=== PATIENT | male | born 1995 | race Hispanic/Latino ===

== ENCOUNTER 2020-09-06 15:26 | Emergency (ER) | payer SELFPAY ==
[2020-09-06 15:36] VITALS: BP 115/65; PULSE 86; RESP 18; TEMP 36.9; O2SAT 99
[2020-09-06 16:13] LABS: COVID19 -Nasal RAPID Negative (Negative)
--- NOTE | 2020-09-06 19:03 | PC.NURSE ---
Pt reports months of abdominal pain, nausea with eating, constipation, back pain that radiates down RLE, constipation, dizziness, YOUNG, vertigo. Pt has been seen at [facility] and [facility] for same with no definitive diagnosis despite multiple ultrasounds, XRays, CT scans. Pt reports symptoms have been worsening over past 2 months. Pt resting quietly in bed during assessment, no grimacing, able to speak in full sentences, pt has sponsor at bedside that continues to speak for the patient.
[2020-09-06 19:11] VITALS: BP 120/68; PULSE 72; RESP 16; O2SAT 98
--- NOTE | 2020-09-06 21:34 | DI.CT.S_ITS ---
PROCEDURE: CT HEAD/BRAIN WO CON INDICATIONS: pain TECHNIQUE: Noncontrast 4.5 mm thick angled axial sections acquired from the foramen magnum to the vertex, with coronal and sagittal reformats. For radiation dose reduction, the following was used: automated exposure control, adjustment of mA and/or kV according to patient size. COMPARISON: None. FINDINGS: Image quality: Excellent. CSF spaces: Basal cisterns are patent. No extra-axial fluid collections. Ventricles are normal in size and shape. Brain: No midline shift. No intracranial masses or hemorrhage. Gates-white matter interface is normal. Fluid density lesion along the distal left transverse sinus likely representing an arachnoid granulation. This is of unlikely clinical significance. Skull and face: Calvarium and visualized facial bones are intact, without suspicious lesions. There is mild prominence of the soft tissues adjacent to the right skull vertex with subtle subcutaneous inflammation. Sinuses: Visualized sinuses and mastoids are clear. IMPRESSION: No acute intracranial abnormality. Subtle soft tissue prominence and inflammation of the scalp overlying the right vertex. This is nonspecific. Recommend correlation with physical exam and history of trauma. No underlying calvarial abnormality. Dictated by: Sergey Beyer D.O. on 09/07/2020 at 7:25 Approved by: Sergey Beyer D.O. on 09/07/2020 at 7:30
--- NOTE | 2020-09-06 21:34 | DI.CT.S_ITS ---
PROCEDURE: CT ABDOMEN PELVIS W CON INDICATIONS: rlq TECHNIQUE: After the administration of intravenous contrast, 5 mm thick sections acquired from the diaphragm to the symphysis. 5 mm coronal and sagittal reformats were acquired. For radiation dose reduction, the following was used: automated exposure control, adjustment of mA and/or kV according to patient size. COMPARISON: None. FINDINGS: Image quality: Excellent. ABDOMEN: Lung bases: Lung bases are clear. Heart size is normal. Solid organs: Liver is normal in size and enhancement. Gallbladder is unremarkable. Biliary system is non dilated. Pancreas enhances normally. Spleen is normal in size and enhancement. No adrenal nodules. Kidneys demonstrate normal size and enhancement, without hydronephrosis. Peritoneum and bowel: Bowel loops demonstrate normal wall thickness and caliber. No free fluid or air. The appendix is normal in size with internal gas. No abnormal enhancement or surrounding inflammation. Nodes and vessels: No retroperitoneal or mesenteric adenopathy by size criteria. Aorta and inferior vena cava are normal in size. Miscellaneous: No ventral hernias. PELVIS: Genitourinary: Limited evaluation of the bladder given nondistention. The prostate and seminal vesicles are within normal limits. Miscellaneous: No inguinal hernias or adenopathy. Bones: No suspicious bony lesions. No vertebral body compression fractures. IMPRESSION: No evidence of an acute intra-abdominal/pelvic abnormality. Specifically the appendix is normal. Agree with preliminary report. Dictated by: Sergey Beyer D.O. on 09/07/2020 at 7:31 Approved by: Sergey Beyer D.O. on 09/07/2020 at 7:34
[2020-09-06] MEDS: ONDANSETRON 4 MG/2 ML INJ IV (21:59)
[2020-09-06] MEDS: KETOROLAC 30 MG/ML VIAL IV (21:59)
[2020-09-06 22:05] LABS: Add Manual Diff / Slide Review NO; Basophils Absolute Auto 0 /uL (0-100); Basophils Percent Auto 0.6 % (0-2); Eosinophils Absolute Auto 100 /uL (0-450); Eosinophils Percent Auto 1.3 % (2-4); Hematocrit 46.1 % (41-53); Hemoglobin 16.4 g/dL (13.5-17.5); Lymphocytes Absolute Auto 2700 /uL (1100-4500); Lymphocytes Percent Auto 41.7 % (25-40); Mean Corpuscular HGB Conc 35.7 % (30-36); Mean Corpuscular Hemoglobin 31.1 PG (26-34); Mean Corpuscular Volume 87.2 fL (80-100); Monocytes Absolute Auto 500 /uL (0-900); Monocytes Percent Auto 7.8 % (3-14); Neutrophils Absolute Auto 3100 /uL (1500-7000); Neutrophils Percent Auto 48.6 % (50-75); Platelet Count 250 X10^3/uL (150-400); Red Blood Cell Count 5.28 X10^6/uL (4.5-5.9); Red Cell Distribution Width 12.6 % (11.6-14.8); White Blood Cell Count 6.4 X10^3/uL (4.5-11.0)
[2020-09-06 22:06] VITALS: PULSE 60; O2SAT 99
[2020-09-06 22:10] LABS: Alanine Aminotransferase 19 IU/L (<50); Albumin 4.8 g/dL (3.5-5.0); Albumin Globulin Ratio 1.5 (1.0-2.8); Alkaline Phosphatase 69 U/L (38-126); Aspartate Aminotransferase 27 IU/L (17-59); BUN Creatinine Ratio 13.3 (6-22); Bilirubin Total 0.8 mg/dL (0.2-1.3); Blood Urea Nitrogen 12 mg/dL (9-20); Calcium 9.9 mg/dL (8.4-10.2); Carbon Dioxide 27 mmol/L (22-32); Chloride 101 mmol/L (98-107); Estimated Glomerular Filt Rate > 60.0 mL/min (>60); Globulin 3.2 g/dL (1.7-4.1); Glucose 90 mg/dL (70-100); HEMOLYSIS 17 (0-50); Lipase 39 U/L (23-300); Potassium 4.1 mmol/L (3.4-5.1); Sodium 139 mmol/L (137-145)
--- NOTE | 2020-09-06 22:27 | ED.HA ---
HPI - Headache General Chief Complaint: Headache Stated Complaint: head pain, muscular pains all over Time Seen by Provider: 09/06/20 21:20 Source: patient and full time staff interpreter Mode of arrival: Family Vehicle Limitations: language barrier History of Present Illness HPI Narrative: Patient is a 25-year-old male from [place] of who his skate from [place] here. He has found refuge with a local. He apparently has been complaining of headache and abdominal pain off and on he has had workup in the past. What is concerning today today is that he has pain radiating from his back to his head. He denies any fever. He also is complaining quite a bit abdominal pain. He says that he is passing gas but no real bowel movement he seems to be tender. He denies any nausea or vomiting. Pain is intermittent your pain in his arms and legs. At 1 point he was diagnosed with sciatica however pain seems to be going superior rather than inferior. He has taken Tylenol and IV profane prior to arrival without any relief. Related Data Allergies Allergy/AdvReac Type Severity Reaction Status Date / Time No Known Drug Allergies Allergy Verified 09/06/20 22:51 Review of Systems Review of Systems Narrative: GENERAL: Denies chills, fatigue, malaise, fever, sweats, travel HEENT: Denies sinus pain, ear pain, sore throat, difficulty swallowing, neck pain RESPIRATORY: Denies dyspnea, cough, wheezing, hemoptysis, sputum. CARDIOVASCULAR: Denies chest pain, palpitations, orthopnea, edema GASTROINTESTINAL: See HPI : Denies dysuria, frequency, incontinence, hematuria, urinary retention, flank pain. MUSCULOSKELETAL: Denies weakness, joint pain, or bony pain SKIN: No rash, no erythema, no pruritus NEUROLOGIC: Denies weakness, dizziness, headache, numbness, change in speech, confusion PSYCHIATRIC: No concerning psychosocial issues. 12 point review of systems is negative except for those stated above and HPI Patient History Social History Smoking Status: Never smoker Smoking Status: Never smoker alcohol intake frequency: 0-2 drinks per day Substance Use Type: does not use Exam Initial Vital Signs Initial Vital Signs: Vital Signs Temperature 98.5 F 09/06/20 15:36 Pulse Rate 86 09/06/20 15:36 Respiratory Rate 18 09/06/20 15:36 Blood Pressure 115/65 09/06/20 15:36 Pulse Oximetry 99 09/06/20 15:36 GENERAL: Well-appearing, well-nourished and in no acute distress. HEENT: Head atraumatic,EOMI, pupils reactive, face symmetric, moist mucous membranes Negative Kernig and Brudzinski sign CARDIOVASCULAR: Regular rate and rhythm without murmurs, rubs or gallops. RESPIRATORY: Breath sounds equal bilaterally, no wheezes rales or rhonchi. ABDOMEN: Soft, nontender. Normoactive bowel sounds all 4 quadrants. No guarding or rebound. EXTREMITIES: Normal range of motion, no clubbing or edema. Neurovascularly intact NEUROLOGICAL: Alert and oriented x4.Normal gait and speech. SKIN: Warm, dry, no laceration, no petechiae, no rashes or lesions. Course Orders Ordered: ED Orders 09/06/20 21:34 CT abdomen pelvis w con Stat CT head/brain wo con Stat 09/06/20 21:45 Complete Blood Count AUTO DIFF Stat Comprehensive Metabolic Panel Stat Lipase Stat Discontinued Medications Ketorolac Tromethamine (Ketorolac 30 Mg/Ml Vial) 30 mg IV NOW ONE Stop: 09/06/20 21:35 Last Admin: 09/06/20 21:59 Dose: 30 mg Documented by: LAURA Lorazepam (Lorazepam 2 Mg/Ml Inj) 0.5 mg IV NOW ONE Stop: 09/06/20 22:50 Last Admin: 09/06/20 22:54 Dose: 0.5 mg Documented by: LAURA Ondansetron HCl (Ondansetron 4 Mg/2 Ml Inj) 4 mg IV NOW ONE Stop: 09/06/20 21:35 Last Admin: 09/06/20 21:59 Dose: 4 mg Documented by: LAURA Vital Signs Vital signs: Vital Signs - 8 hr 09/06/20 22:06 09/06/20 22:30 09/06/20 23:16 Pulse Rate 60 60 65 Respiratory Rate 15 18 Blood Pressure 124/59 L 135/78 Pulse Oximetry 99 98 100 MDM - Headache Lab Data Attestation: I reviewed the patient's lab results. Result diagrams: 09/06/20 21:45 09/06/20 21:45 Labs: Lab Results 09/06/20 09/06/20 09/06/20 Range/Units 15:45 21:45 21:45 WBC 6.4 (4.5-11.0) X10^3/uL RBC 5.28 (4.5-5.9) X10^6/uL Hgb 16.4 (13.5-17.5) g/dL Hct 46.1 (41-53) % MCV 87.2 (80-100) fL MCH 31.1 (26-34) PG MCHC 35.7 (30-36) % RDW 12.6 (11.6-14.8) % Plt Count 250 (150-400) X10^3/uL Neut % (Auto) 48.6 L (50-75) % Lymph % (Auto) 41.7 H (25-40) % [place] % (Auto) 7.8 (3-14) % Eos % (Auto) 1.3 L (2-4) % Baso % (Auto) 0.6 (0-2) % Neut # (Auto) 3100 (2268-8604) /uL Lymph # (Auto) 2700 (8886-7549) /uL [place] # (Auto) 500 (0-900) /uL Eos # (Auto) 100 (0-450) /uL Baso # (Auto) 0 (0-100) /uL Sodium 139 (137-145) mmol/L Potassium 4.1 (3.4-5.1) mmol/L Chloride 101 (98-107) mmol/L Carbon Dioxide 27 (22-32) mmol/L BUN 12 (9-20) mg/dL Creatinine 0.90 (0.66-1.25) mg/dL Estimated GFR > 60.0 (>60) mL/min BUN/Creatinine Ratio 13.3 (6-22) Glucose 90 (70-100) mg/dL Calcium 9.9 (8.4-10.2) mg/dL Total Bilirubin 0.8 (0.2-1.3) mg/dL AST 27 (17-59) IU/L ALT 19 (<50) IU/L Alkaline Phosphatase 69 (38-126) U/L Total Protein 8.0 (6.3-8.2) g/dL Albumin 4.8 (3.5-5.0) g/dL Globulin 3.2 (1.7-4.1) g/dL Albumin/Globulin Ratio 1.5 (1.0-2.8) Lipase 39 (23-300) U/L SARS-CoV-2 (PCR) Negative (Negative) Urine Dip Bedside Urine Glucose Negative Bedside Urine Bilirubin - Negative Bedside Urine Ketone +/- 5 Urine Specific [place] 1.030 Bedside Urine Occult Blood - Negative Bedside Urine pH 6.0 Bedside Urine Urobilinogen - Negative Bedside Urine Nitrite - Negative Bedside Urine Leukocytes - Negative Esterase Imaging Data CT scan - head: Radiologist's Impression: Preliminary report Normal CT head CT scan - abdomen/pelvis: Radiologist's Impression: Preliminary report: Normal appendix MDM Narrative Medical decision making narrative: Patient's symptoms are relatively vague and seem to be is ongoing. He has had workup in the past and has an appointment with his care provider in 2 days. His host was concern for worsening head ache however patient seems to be more concerned with his ongoing abdominal issues. No obvious injury from his trauma which I am unclear when his trauma happened and how long he has actually been in the [place]. I actually believe a lot of his symptoms are probably related to PTSD. He apparently was [facility] the [facility] as well. However at this time I have no acute findings or explanation for his symptoms. He does not appear to have meningitis in overall there is no infection. Discharge Plan Departure Patient Disposition: Home Clinical Impression: Headache, Chronic pain Instructions: DI for Headache Activity Restrictions/Additional Instructions: *You have been diagnosed with headache in chronic pain *What to do: At this time I suspect symptoms may be related to trauma, no injury is found. Increasing fluid intake can help with stools. He does need a primary care provider *Continue to take medications as directed *Follow up with your primary care provider in 2-3 days *Return to ER if you should have a fever, weakness, persistent vomiting or any new, worsening or concerning symptoms Referrals: Frieda Burrell MD [Non-Staff] -
[2020-09-06 22:30] VITALS: BP 124/59; PULSE 60; RESP 15; O2SAT 98
[2020-09-06] MEDS: LORazepam 2 MG/ML INJ 0.5 MG IV (22:54)
[2020-09-06 23:16] VITALS: BP 135/78; PULSE 65; RESP 18; O2SAT 100
== END 2020-09-06 23:17 | disposition home or self-care (01) ==
PROVIDERS: Emergency Medicine; Emergency Provider Emergency Medicine
DX: R51.9 Headache, unspecified (principal); G89.29 Other chronic pain; R10.9 Unspecified abdominal pain; Z20.822 Contact with and (suspected) exposure to COVID-19
CPT/HCPCS: 36415; 70450; 74177; 80053; 81003; 83690; 85025; 87635; 96374; 96375; 99284; C9803; J1885; J2060; J2405; Q9967

== ENCOUNTER 2020-09-08 13:46 | Emergency (ER) | payer SELFPAY ==
[2020-09-08] VITALS (17 sets, daily range): BP systolic 112–147; BP diastolic 64–89; PULSE 62–95; RESP 11–27; TEMP 36.4; O2SAT 99–100
--- NOTE | 2020-09-08 13:54 | DI.RAD.S_ITS ---
PROCEDURE: XR CHEST 1V INDICATIONS: chest pain TECHNIQUE: One view of the chest was acquired. COMPARISON: None. FINDINGS: Surgical changes and devices: None. Lungs and pleura: Lungs are clear. No pleural effusions or pneumothorax. Mediastinum: Mediastinal contours appear normal. Heart size is normal. Bones and chest wall: No suspicious bony lesions. Overlying soft tissues appear unremarkable. IMPRESSION: No acute cardiopulmonary process. Dictated by: John Linda M.D. on 09/08/2020 at 15:00 Approved by: John Linda M.D. on 09/08/2020 at 15:02
[2020-09-08] MEDS: SODIUM CHLORIDE 0.9% 1,000 ML 1000 ML IV (14:01)
[2020-09-08] MEDS: NALOXONE 1 MG/ML SYRINGE IV (14:01)
--- NOTE | 2020-09-08 14:05 | ED.GENADULT ---
HPI - General Adult General Chief complaint: Unresponsive Stated complaint: lost consciousness in parking lot, non-responsive Time Seen by Provider: 09/08/20 13:54 Source: patient Mode of arrival: other (Stretcher) Limitations: language barrier and altered mental status History of Present Illness HPI narrative: Patient is a 25-year-old male who arrived to the emergency department by private vehicle. He had to be extracted from the vehicle by nursing staff in the parking lot. He did have a response to deep sternal rub but otherwise was unable to provide any HPI. Was also reports the patient speaks very little [place] of this was also an issue. Related Data Previous Rx's Medication Instructions Recorded cyclobenzaprine 10 mg PO TID PRN #20 tab 09/08/20 docusate sodium [Colace] 100 mg PO BID PRN #30 cap 09/08/20 Allergies Allergy/AdvReac Type Severity Reaction Status Date / Time No Known Drug Allergies Allergy Verified 09/06/20 22:51 Review of Systems Review of Systems ROS Unobtainable: Unobtainable due to medical condition Patient History Medical History Back pain Chronic pain Social History Smoking Status: Never smoker Smoking Status: Never smoker alcohol intake frequency: 0-2 drinks per day Substance Use Type: does not use Exam Initial Vital Signs Initial Vital Signs: Vital Signs Pulse Rate 73 09/08/20 13:55 Respiratory Rate 21 09/08/20 13:55 Const Limitations: altered mental status HENMT Head: normal to inspection and normocephalic Face and sinus: normal facial exam Eyes General: appearance normal, both eyes and all related structures Pupils: PERRL Neck Lymphatic: No lymphadenopathy Chest Chest: No crepitus Resp Effort & Inspection: normal respiratory effort Auscultation: clear to auscultation bilaterally Cardio Rate: regular rate Rhythm: regular rhythm GI Inspection: non-distended External: normal external exam Skin Lesions: no lesions Rashes: no rashes Neuro General: moves all extremities Extrem General: normal to inspection Psych Appearance: well kempt Course Orders Ordered: Discontinued Medications Ammonia (Aromatic Spirit) (Ammonia Inhalant 1 Each) 1 each INH NOW ONE Stop: 09/08/20 13:55 Last Admin: 09/08/20 15:47 Dose: Not Given Documented by: LEEANNA Sodium Chloride (Normal Saline 0.9%) 1,000 mls @ 1,000 mls/hr IV BOLUS ONE Stop: 09/08/20 14:54 Last Infusion: 09/08/20 15:02 Dose: 0 mls/hr Documented by: Admin: 09/08/20 14:01 Dose: 1,000 mls/hr Documented by: LEEANNA Naloxone HCl (Naloxone 1 Mg/Ml Syringe) 1 mg IV NOW ONE Stop: 09/08/20 13:56 Last Admin: 09/08/20 14:01 Dose: 1 mg Documented by: LEEANNA Medical Decision Making Medical Records Medical records reviewed: Yes I reviewed the patient's medical records. Lab Data Lab results reviewed: Yes I reviewed the patient's lab results. Result diagrams: 09/08/20 14:00 09/08/20 14:00 Labs: Lab Results 09/08/20 09/08/20 09/08/20 Range/Units 14:00 14:00 14:00 WBC 6.0 (4.5-11.0) X10^3/uL RBC 5.61 (4.5-5.9) X10^6/uL Hgb 17.4 (13.5-17.5) g/dL Hct 49.3 (41-53) % MCV 87.8 (80-100) fL MCH 31.0 (26-34) PG MCHC 35.3 (30-36) % RDW 12.0 (11.6-14.8) % Plt Count 253 (150-400) X10^3/uL Neut % (Auto) 49.1 L (50-75) % Lymph % (Auto) 39.9 (25-40) % [place] % (Auto) 8.4 (3-14) % Eos % (Auto) 1.8 L (2-4) % Baso % (Auto) 0.8 (0-2) % Neut # (Auto) 3000 (0075-7490) /uL Lymph # (Auto) 2400 (8116-4379) /uL [place] # (Auto) 500 (0-900) /uL Eos # (Auto) 100 (0-450) /uL Baso # (Auto) 100 (0-100) /uL PT 13.0 H (10.1-12.7) SECONDS INR 1.2 (0.9-1.3) APTT 39 H (26.4-36.2) SECONDS Sodium 138 (137-145) mmol/L Potassium 3.8 (3.4-5.1) mmol/L Chloride 100 (98-107) mmol/L Carbon Dioxide 27 (22-32) mmol/L BUN 12 (9-20) mg/dL Creatinine 1.17 (0.66-1.25) mg/dL Estimated GFR > 60.0 (>60) mL/min BUN/Creatinine Ratio 10.3 (6-22) Glucose 94 (70-100) mg/dL Calcium 10.3 H (8.4-10.2) mg/dL Total Bilirubin 0.8 (0.2-1.3) mg/dL AST 28 (17-59) IU/L ALT 23 (<50) IU/L Alkaline Phosphatase 82 (38-126) U/L Total Creatine Kinase 76 (55-170) U/L CK-MB (CK-2) TNP CK-MB (CK-2) Rel Index TNP Troponin I < 0.012 (0.01-0.034) ng/mL Total Protein 8.3 H (6.3-8.2) g/dL Albumin 5.0 (3.5-5.0) g/dL Globulin 3.3 (1.7-4.1) g/dL Albumin/Globulin Ratio 1.5 (1.0-2.8) Lipase 66 D (23-300) U/L Urine Color Urine Appearance Urine pH (4.5-8.0) Ur Specific [place] (1.000-1.035) Urine Protein (Negative) Urine Glucose (UA) (Negative) g/dL Urine Ketones (NEGATIVE) Urine Occult Blood (Negative) Urine Nitrate (Negative) Urine Bilirubin (NEGATIVE) Urine Urobilinogen (0.2) E.U./dL Ur Leukocyte Esterase (NEGATIVE) Urine RBC (0-5/HPF) Urine WBC (0-5/HPF) Urine Bacteria (None) Ur Culture Indicated? U Opiates 300ng/mL cut (Negative) Ur Oxycodone Screen (Negative) Urine Methadone Screen (Negative) Ur Barbiturates Screen (Negative) U Tricyclic Antidepress (Negative) Ur Phencyclidine Scrn (Negative) Ur Amphetamines Screen (Negative) U Methamphetamines Scrn (Negative) Ur MDMA Scrn (Ecstasy) (Negative) U Benzodiazepines Scrn (Negative) Urine Cocaine Screen (Negative) U Marijuana (THC) Screen (Negative) Ethyl Alcohol < 10 ( - 10) mg/dL SARS-CoV-2 (PCR) (Negative) 09/08/20 09/08/20 09/08/20 Range/Units 14:55 14:55 14:58 WBC (4.5-11.0) X10^3/uL RBC (4.5-5.9) X10^6/uL Hgb (13.5-17.5) g/dL Hct (41-53) % MCV (80-100) fL MCH (26-34) PG MCHC (30-36) % RDW (11.6-14.8) % Plt Count (150-400) X10^3/uL Neut % (Auto) (50-75) % Lymph % (Auto) (25-40) % [place] % (Auto) (3-14) % Eos % (Auto) (2-4) % Baso % (Auto) (0-2) % Neut # (Auto) (0873-8004) /uL Lymph # (Auto) (7736-0782) /uL [place] # (Auto) (0-900) /uL Eos # (Auto) (0-450) /uL Baso # (Auto) (0-100) /uL PT (10.1-12.7) SECONDS INR (0.9-1.3) APTT (26.4-36.2) SECONDS Sodium (137-145) mmol/L Potassium (3.4-5.1) mmol/L Chloride (98-107) mmol/L Carbon Dioxide (22-32) mmol/L BUN (9-20) mg/dL Creatinine (0.66-1.25) mg/dL Estimated GFR (>60) mL/min BUN/Creatinine Ratio (6-22) Glucose (70-100) mg/dL Calcium (8.4-10.2) mg/dL Total Bilirubin (0.2-1.3) mg/dL AST (17-59) IU/L ALT (<50) IU/L Alkaline Phosphatase (38-126) U/L Total Creatine Kinase (55-170) U/L CK-MB (CK-2) CK-MB (CK-2) Rel Index Troponin I (0.01-0.034) ng/mL Total Protein (6.3-8.2) g/dL Albumin (3.5-5.0) g/dL Globulin (1.7-4.1) g/dL Albumin/Globulin Ratio (1.0-2.8) Lipase (23-300) U/L Urine Color Yellow Urine Appearance Clear Urine pH 6.5 (4.5-8.0) Ur Specific [place] 1.010 (1.000-1.035) Urine Protein Negative (Negative) Urine Glucose (UA) Negative (Negative) g/dL Urine Ketones Negative (NEGATIVE) Urine Occult Blood Negative (Negative) Urine Nitrate Negative (Negative) Urine Bilirubin Negative (NEGATIVE) Urine Urobilinogen 0.2 (0.2) E.U./dL Ur Leukocyte Esterase Negative (NEGATIVE) Urine RBC None seen (0-5/HPF) Urine WBC None seen (0-5/HPF) Urine Bacteria None seen (None) Ur Culture Indicated? Cult not indicated U Opiates 300ng/mL cut Negative (Negative) Ur Oxycodone Screen Negative (Negative) Urine Methadone Screen Negative (Negative) Ur Barbiturates Screen Negative (Negative) U Tricyclic Antidepress Negative (Negative) Ur Phencyclidine Scrn Negative (Negative) Ur Amphetamines Screen Negative (Negative) U Methamphetamines Scrn Negative (Negative) Ur MDMA Scrn (Ecstasy) Negative (Negative) U Benzodiazepines Scrn Negative (Negative) Urine Cocaine Screen Negative (Negative) U Marijuana (THC) Screen Negative (Negative) Ethyl Alcohol ( - 10) mg/dL SARS-CoV-2 (PCR) Negative (Negative) Imaging Data Chest x-ray: Radiologist's Impression: [address] [id number] ReportSigned Patient: Angel GomezR#: [id number]: 1995Acct:[id number]/Sex: MDate of Service: 09/08/20Loc: EDAccession Number: [id number] Procedure: XR chest 1V Ordering Provider: Erick Gottlieb D.O. PROCEDURE: XR CHEST 1V INDICATIONS: chest pain TECHNIQUE: One view of the chest was acquired. COMPARISON: None. FINDINGS: Surgical changes and devices: None. Lungs and pleura: Lungs are clear. No pleural effusions or pneumothorax. Mediastinum: Mediastinal contours appear normal. Heart size is normal. Bones and chest wall: No suspicious bony lesions. Overlying soft tissues appear unremarkable. IMPRESSION: No acute cardiopulmonary process. Dictated by: John Linda M.D. on 09/08/2020 at 15:00 Approved by: John Linda M.D. on 09/08/2020 at 15:02 CT scan - head: Radiologist's Impression: [address] [id number] Scan ReportSigned Patient: Angel GomezR#: [id number]: 1995Acct:[id number]/Sex: 25 / MDate of Service: 09/08/20Loc: EDAccession Number: [id number] Procedure: CT head/brain wo con Ordering Provider: Erick Gottlieb D.O. PROCEDURE: CT HEAD/BRAIN WO CON INDICATIONS: Altered mental status TECHNIQUE: Noncontrast 4.5 mm thick angled axial sections acquired from the foramen magnum to the vertex, with coronal and sagittal reformats. For radiation dose reduction, the following was used: automated exposure control, adjustment of mA and/or kV according to patient size. COMPARISON: [facility], CT, CT HEAD/BRAIN WO CON, 09/06/2020, 21:41. FINDINGS: Image quality: Excellent. CSF spaces: Basal cisterns are patent. No extra-axial fluid collections. Ventricles are normal in size and shape. Brain: No midline shift. No intracranial masses or hemorrhage. Gates-white matter interface is normal. Skull and face: Calvarium and visualized facial bones are intact, without suspicious lesions. Sinuses: Visualized sinuses and mastoids are clear. IMPRESSION: No acute intracranial process. Dictated by: Brady Lu M.D. on 09/08/2020 at 14:38 Approved by: Brady Lu M.D. on 09/08/2020 at 14:40 ECG Data Attestation: I personally reviewed and interpreted this ECG as follows: Prior ECG tracings: not available for review Interpretation: Sinus rhythm Ventricular rate is 77 Normal axis Normal QRS Normal QTC No ST T wave changes MDM Narrative Medical decision making narrative: Patient initially was maintaining his airway and moved all 4 extremities but was minimally responsive even to deep stimulus. Was given Narcan without any apparent resolution of symptoms. Head CT was unremarkable. Labs are unremarkable. During his time here in the emergency department he did become more alert and awake. Review of his history when he was here couple days ago seems that there was a PTSD/anxiety component to his symptoms. He eventually did become conversive was able to provide HPI/review of systems. The translation line was used for this. He states that he was coming to the hospital today in order to obtain his records from a couple days ago so that he could take to his new primary provider at the [facility]. He states that he was having back pain and neck pain and also abdominal pain. What he describes appears to be a constipation issue. It seems that this has been going on for quite some time. He states he strains quite a bit with sitting on the toilet. This causes him to have some chest discomfort and neck discomfort and also some blurry vision. We did discuss things he could do at home to help with the apparent constipation issues. He does have a benign abdominal exam today. He is also complaining of back pain. The area that he points to his back does seem to have muscle tension in this area. I do suspect this is musculoskeletal in origin. I have low suspicion for stroke. Low suspicion for TIA. He does not have any other findings consistent with alcohol or other toxic ingestion. I suspect that his symptoms earlier today were anxiety/psychological in origin. We also had a discussion about potential suicidal ideations that he has been having. He states that his abdomen hurts so much at times that he wants to cut it open to see what is going on inside. I tried to provide reassurance to the patient that there were medications and we could try to help with his symptoms. He is not currently suicidal. He does have primary provider support. I feel that we can hold on further workup. Patient was given return precautions through the translation line and he expressed understanding of this. He walked out of the emergency department. Discharge Plan Departure Patient Disposition: Home Clinical Impression: Abdominal pain, Back pain Instructions: Low Back Pain, Constipation Activity Restrictions/Additional Instructions: Recomiende que tome los medicamentos seg?n las indicaciones. Tambi?n le recomiendo que se comunique con quiroga proveedor principal para un seguimiento. Quiroga m?dico de cabecera puede solicitar estudios adicionales si es necesario si los medicamentos no funcionan. Regrese al departamento de emergencias por cualquier s?ntoma nuevo. Prescriptions: New docusate sodium [Colace] 100 mg capsule 100 mg PO BID PRN (Reason: constipation) Qty: 30 RF: 0 cyclobenzaprine 10 mg tablet 10 mg PO TID PRN (Reason: muscle spasm) Qty: 20 RF: 0
[2020-09-08 14:10] LABS: Add Manual Diff / Slide Review NO; Basophils Absolute Auto 100 /uL (0-100); Basophils Percent Auto 0.8 % (0-2); Eosinophils Absolute Auto 100 /uL (0-450); Eosinophils Percent Auto 1.8 % (2-4); Hematocrit 49.3 % (41-53); Hemoglobin 17.4 g/dL (13.5-17.5); Lymphocytes Absolute Auto 2400 /uL (1100-4500); Lymphocytes Percent Auto 39.9 % (25-40); Mean Corpuscular HGB Conc 35.3 % (30-36); Mean Corpuscular Volume 87.8 fL (80-100); Monocytes Absolute Auto 500 /uL (0-900); Monocytes Percent Auto 8.4 % (3-14); Neutrophils Absolute Auto 3000 /uL (1500-7000); Neutrophils Percent Auto 49.1 % (50-75); Platelet Count 253 X10^3/uL (150-400); Red Blood Cell Count 5.61 X10^6/uL (4.5-5.9)
[2020-09-08 14:19] LABS: INR 1.2 (0.9-1.3)
[2020-09-08 14:22] LABS: PTT Partial Thromboplastin Tim 39 SECONDS (26.4-36.2)
[2020-09-08 14:26] LABS: Alanine Aminotransferase 23 IU/L (<50); Albumin Globulin Ratio 1.5 (1.0-2.8); Alkaline Phosphatase 82 U/L (38-126); Aspartate Aminotransferase 28 IU/L (17-59); BUN Creatinine Ratio 10.3 (6-22); Bilirubin Total 0.8 mg/dL (0.2-1.3); Blood Urea Nitrogen 12 mg/dL (9-20); Calcium 10.3 mg/dL (8.4-10.2); Carbon Dioxide 27 mmol/L (22-32); Chloride 100 mmol/L (98-107); Creatine Kinase 76 U/L (55-170); Estimated Glomerular Filt Rate > 60.0 mL/min (>60); Ethanol (ETOH) < 10 mg/dL; Globulin 3.3 g/dL (1.7-4.1); Glucose 94 mg/dL (70-100); HEMOLYSIS 19 (0-50); Lipase 66 U/L (23-300); Potassium 3.8 mmol/L (3.4-5.1); Sodium 138 mmol/L (137-145); Total Protein 8.3 g/dL (6.3-8.2)
[2020-09-08 14:36] LABS: Troponin I < 0.012 ng/mL (0.01-0.034)
[2020-09-08 16:03] LABS: Bacteria Urine None Seen; RBC Urine None Seen (0-5/HPF); WBC Urine None Seen (0-5/HPF)
[2020-09-08 16:10] LABS: UR Morphine/Opiate cutoff 300 Negative (Negative); Ur Creatinine Normal (Normal); Ur Specific Gravity Normal (Normal); Urine Amphetamines Negative (Negative); Urine Barbiturates Negative (Negative); Urine Benzodiazepines Negative (Negative); Urine Cocaine Negative (Negative); Urine MDMA Negative (Negative); Urine Methadone Negative (Negative); Urine Methamphetamines Negative (Negative); Urine Oxycodone Negative (Negative); Urine Phencyclidine Negative (Negative); Urine Tetrahydrocannabinol Negative (Negative); Urine Tricyclic Antidepressant Negative (Negative); Urine pH Normal (Normal)
--- NOTE | 2020-09-08 16:12 | PC.NURSE ---
Patient's friend Naomi called to report a conversation that she had with Benjiechari Beal who is a case manger at [employer] [facility]. His telephone number is [phone]: home; [phone]: cell. Naomi told Benjie that patient has hx of suicidal tendancies and thoughts. When Angel and Benjie spoke this morning, Angel told him that he has thought about jumping out the window, taking pills, and using a knife to cut himself open in the stomach. Benjie is going to the man that patient lives with to help out and make a safety plan. Will report this information to MONSE Garcia.
[2020-09-08 16:17] LABS: Appearance Urine UA CLEAR; Bilirubin Urine UA NEGATIVE (NEGATIVE); Color Urine UA YELLOW; Glucose Urine UA NEGATIVE (Negative); Ketones Urine UA NEGATIVE (NEGATIVE); Leukocyte Esterase Urine UA NEGATIVE (NEGATIVE); Nitrite Urine UA NEGATIVE (Negative); Occult Blood Urine UA NEGATIVE (Negative); Protein Urine UA NEGATIVE (Negative); Urobilinogen Urine UA 0.2 E.U./dL (0.2); pH Urine UA 6.5 (4.5-8.0)
[2020-09-08 16:22] LABS: COVID19 - ADMIT (NP swab/PCR) Negative (Negative)
[2020-09-08 16:34] LABS: Culture Indicated Urine Cult Not Indicated
== END 2020-09-08 17:11 | disposition home or self-care (01) ==
PROVIDERS: Emergency Provider Emergency Medicine
DX: R10.9 Unspecified abdominal pain (principal); R07.9 Chest pain, unspecified; M54.9 Dorsalgia, unspecified; K59.00 Constipation, unspecified; Z20.822 Contact with and (suspected) exposure to COVID-19
CPT/HCPCS: 36415; 70450; 71045; 80053; 80305; 80320; 81001; 82550; 83690; 84484; 85025; 85610; 85730; 87635; 93005; 96361; 96374; 99285; C9803; J2310

== ENCOUNTER 2021-01-28 09:45 | Outpatient (RCR) | payer SELFPAY ==
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
--- NOTE | 2021-01-14 10:02 | PT-OP ANOTE ---
Pt's transportation from [facility] fell through and he called to cancel same day. Rescheduled for 01/28/21.
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
== END 2021-03-19 14:13 ==
LOC: PHYS 09:45
PROVIDERS: Family Provider Family Medicine; PCP Family Medicine; Referring Provider Family Medicine; Visit Provider Family Medicine
DX: M25.562 Pain in left knee (principal); G89.29 Other chronic pain; S39.012S Strain of muscle, fascia and tendon of lower back, sequela; R26.2 Difficulty in walking, not elsewhere classified
CPT/HCPCS: 97110; 97140; 97163; 97530; 97535